=== PATIENT | male | born 1995 | race Caucasian/White ===

== ENCOUNTER 2017-08-02 23:11 | Emergency (ER) | payer BC ==
[~2017-08-02] VITALS: Ht 185.4 cm; Wt 86.1 kg
[2017-08-02 23:14] VITALS: TEMP 36.8; Ht 185.4 cm; Wt 86.1 kg
[2017-08-02] MEDS ORDERED: KETOROLAC TROMETHAMINE 30 MG/ML VIAL IV STA (23:23)
[2017-08-02 23:45] LABS: BASO % 0.1 %; BASO ABS # 0.01 K/uL (0-0.2); COMPLETE YES; EOS % 2.5 %; HEMATOCRIT 43.7 % (42-52); IG% 0.3 %; LYMPH % 46.7 %; MEAN CORPUSCULAR HEMOGLOBIN 31.6 pg (25-34); MEAN CORPUSCULAR HGB CONC 35.5 g/dl (32-36); MONO % 10.1 %; NEUT % 40.3 %; PLATELET COUNT 212 K/uL (130-400); RED BLOOD COUNT 4.91 M/uL (4.7-6.1); WHITE BLOOD COUNT 7.06 K/uL (4.8-10.8)
[2017-08-02 23:52] LABS: URINE APPEARANCE TURBID (CLEAR); URINE BILIRUBIN NEG (NEG); URINE COLOR YELLOW; URINE NITRITE NEG (NEG); URINE PH 7.5 (4.5-7.5); URINE SPECIFIC GRAVITY 1.032 (1.000-1.030); UROBILINOGEN NEG (NEG); ZZUR CULT IF INDIC CLEAN CATCH NO
[2017-08-03 00:14] LABS: MANUAL MICROSCOPIC REQUIRED? NO; REVIEW REQ? NO
[2017-08-03 00:20] LABS: ALKALINE PHOSPHATASE 64 U/L (45-117); ALT/SGPT 25 U/L (12-78); BLOOD UREA NITROGEN 20 mg/dl (7-18); BUN/CREATININE RATIO 20.1 (10-20); CALCIUM 8.9 mg/dl (8.5-10.1); CARBON DIOXIDE 30 mmol/L (21-32); CHLORIDE 105 mmol/L (98-107); GLUCOSE 93 mg/dl (70-99)
[2017-08-03 00:22] LABS: POTASSIUM 4.2 mmol/L (3.5-5.1); SODIUM 141 mmol/L (136-145)
[2017-08-03 00:31] LABS: AST/SGOT 16 U/L (15-37)
--- NOTE | 2017-08-03 02:35 | EMERGENCY ROOM VISIT NOTE ---
History First contact with patient: 23:19 Chief Complaint: FLANK PAIN Stated Complaint: RIB/KIDNEY PAIN History of Present Illness The patient is a 22 year old male who presents to the Emergency Room with complaints of right flank pain for the past few days described as aching, ranging in severity 6 out of 10 that is worse with movement and better with rest. It does not radiate. Patient denies injury to the area, chest pain, dyspnea, abdominal pain, vomiting, diarrhea, urinary problems. Patient works out a lot. Review of Systems See HPI for pertinent positives & negatives. A total of 10 systems reviewed and were otherwise negative. Past Medical/Surgical History None Social History Smoking Status: Current Some Day Smoker Drug Use: none Occupation Status: [employer] student Current/Historical Medications No Active Prescriptions or Reported Meds Physical Exam Vital Signs Date Time Temp Pulse Resp B/P (MAP) Pulse Ox O2 Delivery O2 Flow Rate FiO2 08/03/17 01:00 65 18 130/65 98 Room Air 08/02/17 23:42 Room Air 08/02/17 23:14 36.8 79 16 156/89 97 Room Air Physical Exam VITALS: Vitals are noted on the nurse's note and reviewed by myself. Vital signs stable. GENERAL: Pleasant male, in no acute distress, nondiaphoretic, well-developed well-nourished. SKIN: The skin was without rashes, erythema, edema, or bruising. There is no tenting of the skin. Capillary reflex less than 2 seconds. HEAD: Normocephalic atraumatic. EARS: External auditory canals clear, tympanic membranes pearly tsang without erythema or effusion bilaterally. EYES: Pupils equal round and reactive to light and accommodation. Conjunctivae without injection, sclerae without icterus. Extraocular movements intact. NOSE: Patent, turbinates without inflammation or discharge. MOUTH: Mucous membranes moist. Pharynx without erythema or exudate. Uvula midline. Airway patent. Tongue does not deviate. NECK: Supple without nuchal rigidity. No lymphadenopathy. No thyromegaly. Cervical spine is nontender. No JVD. HEART: Regular rate and rhythm without murmurs gallops or rubs. LUNGS: Clear to auscultation bilaterally without wheezes, rales or rhonchi. No dullness to percussion. No retractions or accessory muscle use. ABDOMEN: Positive bowel sounds x 4. Normal tympanic percussion. Soft, nontender, without masses or organomegaly. Nicholas sign negative. No guarding or rebound tenderness. No CVA tenderness MUSCULOSKELETAL: No muscle atrophy, erythema, or edema noted. No thoracic or lumbar tenderness on exam. Patient can ambulate without difficulties. NEURO: Patient was alert and oriented to person place and time. Normal sensation to light and sharp touch. No focal neurological deficits. Medical Decision & Procedures Laboratory Results 08/02/17 23:30 Red Blood Count 4.91, Mean Corpuscular Volume 89.0, Mean Corpuscular Hemoglobin 31.6, Mean Corpuscular Hemoglobin Concent 35.5, Mean Platelet Volume 10.0, Neutrophils (%) (Auto) 40.3, Lymphocytes (%) (Auto) 46.7, Monocytes (%) (Auto) 10.1, Eosinophils (%) (Auto) 2.5, Basophils (%) (Auto) 0.1, Neutrophils # (Auto ) 2.84, Lymphocytes # (Auto) 3.30, Monocytes # (Auto) 0.71, Eosinophils # (Auto ) 0.18, Basophils # (Auto) 0.01 08/02/17 23:30 Test 08/02/17 23:25 08/02/17 23:30 Urine Color YELLOW Urine Appearance TURBID (CLEAR) Urine pH 7.5 (4.5-7.5) Urine Specific [place] 1.032 (1.000-1.030) Urine Protein NEG (NEG) Urine Glucose (UA) NEG (NEG) Urine Ketones NEG (NEG) Urine Occult Blood NEG (NEG) Urine Nitrite NEG (NEG) Urine Bilirubin NEG (NEG) Urine Urobilinogen NEG (NEG) Urine Leukocyte Esterase NEG (NEG) Urine WBC (Auto) 0 /hpf (0-5) Urine RBC (Auto) 0-4 /hpf (0-4) Urine Hyaline Casts (Auto) 0 /lpf (0-5) Urine Epithelial Cells (Auto) 5-10 /lpf (0-5) Urine Bacteria (Auto) NEG (NEG) White Blood Count 7.06 K/uL (4.8-10.8) Red Blood Count 4.91 M/uL (4.7-6.1) Hemoglobin 15.5 g/dL (14.0-18.0) Hematocrit 43.7 % (42-52) Mean Corpuscular Volume 89.0 fL (80-100) Mean Corpuscular Hemoglobin 31.6 pg (25-34) Mean Corpuscular Hemoglobin Concent 35.5 g/dl (32-36) Platelet Count 212 K/uL (130-400) Mean Platelet Volume 10.0 fL (7.4-10.4) Neutrophils (%) (Auto) 40.3 % Lymphocytes (%) (Auto) 46.7 % Monocytes (%) (Auto) 10.1 % Eosinophils (%) (Auto) 2.5 % Basophils (%) (Auto) 0.1 % Neutrophils # (Auto) 2.84 K/uL (1.4-6.5) Lymphocytes # (Auto) 3.30 K/uL (1.2-3.4) Monocytes # (Auto) 0.71 K/uL (0.11-0.59) Eosinophils # (Auto) 0.18 K/uL (0-0.5) Basophils # (Auto) 0.01 K/uL (0-0.2) RDW Standard Deviation 40.1 fL (36.4-46.3) RDW Coefficient of Variation 12.4 % (11.5-14.5) Immature Granulocyte % (Auto) 0.3 % Immature Granulocyte # (Auto) 0.02 K/uL (0.00-0.02) Anion Gap 6.0 mmol/L (3-11) Est Creatinine Clear Calc Drug Dose 132.0 ml/min Estimated GFR () 124.1 Estimated GFR (Non- 107.1 BUN/Creatinine Ratio 20.1 (10-20) Calcium Level 8.9 mg/dl (8.5-10.1) Total Bilirubin 0.3 mg/dl (0.2-1) Direct Bilirubin < 0.1 mg/dl (0-0.2) Aspartate Amino Transf (AST/SGOT) 16 U/L (15-37) Alanine Aminotransferase (ALT/SGPT) 25 U/L (12-78) Alkaline Phosphatase 64 U/L (45-117) Total Creatine Kinase 139 U/L (39-308) Total Protein 6.9 gm/dl (6.4-8.2) Albumin 3.9 gm/dl (3.4-5.0) Lipase 130 U/L (73-393) Medications Administered Medications (Trade) Dose Ordered Sig/[facility] Route Start Time Stop Time Status Last Admin Dose Admin Ketorolac Tromethamine (Toradol Inj) 30 mg NOW STAT IV 08/02/17 23:23 08/02/17 23:26 DC 08/02/17 23:40 30 MG ED Course Prior records/ancillary studies reviewed. Triage Nursing notes reviewed. Additional history obtained from friend The patient's history was concerning for back pain. Differential diagnosis: Etiologies such as musculoskeletal, disc herniation, fracture, aortic disease, metastatic disease, cord compression, discitis, infection, renal colic, gastrointestinal, acute exacerbation of chronic back pain, sciatica, cauda equina, as well as others were entertained. Physical findings: As above. No focal neurologic findings noted. ER treatment provided: Toradol On reassessment the patient felt better. Diagnostics interpreted by me: The labs revealed no leukocytosis. Negative urine Imaging studies: Ultrasound negative cholecystitis. Prominent right renal pelvis. This appears to be consistent with right flank pain most likely muscular in etiology. The patient's physical examination and detailed history did not reveal any red flags for back pain such as those listed in the differential diagnosis. Therefore advanced diagnostics and consultations were felt to be unwarranted. Patient was neurovascularly and neurologically intact. Patient is well-appearing. Patient is tolerating fluids. Patient did not have an acute abdomen on exam. Patient was ambulating without difficulties. Patient was advised to follow-up with family care in a few days or here in the ER sooner for severe pain, fevers, chest pain, abdominal pain, worsening signs or symptoms or as needed. By the evaluation outlined above emergent etiologies such as fracture, aortic disease, metastatic disease, infection, renal colic, gastrointestinal, cord compression, cauda equina, as well as others were deemed relatively unlikely. The pt informed about the findings as listed above. All questions were answered and pleased with the treatment. Return instructions were outlined and the patient was discharged in stable condition. Referral: The patient was referred back to primary care physician for follow-up in 2 to 3 days for a recheck of the current condition. Case reviewed with my attending. Medical Decision As above Medication Reconcilliation Current Medication List: was personally reviewed by me Blood Pressure Screening Patient's blood pressure: Elevated blood pressure Blood pressure disposition: Elevated BP felt to be situational Impression Primary Impression: Right flank pain Departure Information Dispostion Home / Self-Care Condition GOOD Prescriptions No Active Prescriptions or Reported Meds Referrals [facility] (PCP) Patient Instructions My [facility] Additional Instructions Ibuprofen(Motrin, Advil) may be used for fever or pain. Use 600mg every six hours as needed. Take with food. Avoid using more than 2400mg in a 24 hour period. Do not use 2400mg per day for more than three consecutive days without physician direction. Prolonged inappropriate use can lead to stomach upset or ulcers. This medication can be taken if you need to drive, work, or perform activities which may be dangerous when taking narcotic pain medication. (AND/OR) Acetaminophen(Tylenol) may be used for fever or pain. Use 1000mg every six hours as needed. Avoid using more than 3000mg in a 24 hour period. This medication can be taken if you need to drive, work, or perform activities which may be dangerous when taking narcotic pain medication. Rest and avoid heavy lifting until your symptoms resolve and then gradually return to full activity. A good rule of thumb is if it hurts your back to perform a certain activity, then it should be avoided until you are healthy again. A heating pad, warm compresses, or a hot shower may help with tight muscles and can be done several times a day as needed. Continue current medications. Return to the ER immediately for any numbness, tingling, severe pain, loss of control of your bowels or bladder, inability to walk, or as needed. Follow up with your primary care physician/health services within 3-5 days for a recheck of your current condition.
[2017-08-03 02:41] VITALS: BP 140/61; PULSE 67; O2SAT 98
--- NOTE | 2017-08-03 07:15 | DIAGNOSTIC IMAGING REPORT ---
GALLBLADDER-ABD LIMITED CLINICAL HISTORY: right flank/upper quad pain, ? Stone/GB pain. Nausea. TECHNIQUE: Ultrasound COMPARISON STUDY: None FINDINGS: Contracted gallbladder. No shadowing gallstones. Common bile duct 3 mm. Uniform liver and pancreas. Right kidney is negative for hydronephrosis. IMPRESSION: Contracted gallbladder. Otherwise negative study. The above report was generated using voice recognition software. It may contain grammatical, syntax or spelling errors. Electronically signed by: Blaine Figueroa M.D. 08/03/2017 7:14 AM Dictated Date/Time: 08/03/2017 7:13 AM
--- NOTE | 2017-08-03 07:16 | DIAGNOSTIC IMAGING REPORT ---
ULTRASOUND KIDNEYS AND BLADDER CLINICAL HISTORY: Right flank pain. COMPARISON STUDY: Right upper quadrant ultrasound dated 08/02/2017. TECHNIQUE: Real-time, grayscale, and color flow sonography of the kidneys and bladder is performed. Images are reviewed in the transverse and longitudinal planes. FINDINGS: Kidneys: The kidneys are normal in size and echotexture. The right kidney measures 10.9 cm in length and the left kidney measures 11.2 cm in length. There is mild fullness of the right renal pelvis without evidence of hydronephrosis. No shadowing renal calculi are identified. There is no sonographic evidence of contour deforming renal mass lesion. No perinephric fluid is identified. Spleen: The spleen is normal in size and echotexture, measuring 12.1 cm in length. Bladder: The bladder is normal in appearance. Ureteral jets were not seen. IMPRESSION: 1. The kidneys are normal in size and echotexture. 2. There is mild fullness of the right renal pelvis without clear evidence of hydronephrosis. 3. The bladder was normal as visualized. Ureteral jets were not seen. Electronically signed by: Asim Deutsch M.D. 08/03/2017 7:15 AM Dictated Date/Time: 08/03/2017 7:13 AM
== END 2017-08-03 02:42 | disposition home or self-care (01) ==
LOC: C.EDB 23:12 → C.EDA 08-03 02:42
DX: R10.30 Lower abdominal pain, unspecified (principal); F17.200 Nicotine dependence, unspecified, uncomplicated